=== PATIENT | male | born 1965 | race Two or more races ===

== ENCOUNTER 2023-04-19 23:03 | Inpatient (IN) | payer MEDICAID, OTHER ==
[~2023-04-19] VITALS: Ht 165.1 cm; Wt 89.4 kg
[2023-04-19 23:22] LABS: Basophils # (auto) 0.1 10 ^3/uL (0-0.2); Basophils % (auto) 1.2 % (0.0-2.0); Eosinophils # (auto) 0.4 10 ^3/uL (0-0.8); Eosinophils % (auto) 4.8 % (0.0-7.0); Hematocrit 38.1 % (41.0-53.0); Hemoglobin 12.9 g/dL (13.5-17.5); Lymphocytes # (auto) 3.6 10 ^3/uL (0.4-5.4); Lymphocytes % (auto) 44.3 % (10.0-50.0); Mean Corpuscular Hemoglobin 30.1 pg (28.0-32.0); Mean Corpuscular Hgb Conc. 33.9 g/dL (32.0-36.0); Mean Corpuscular Volume 88.7 fL (80.0-100.0); Monocytes # (auto) 0.6 10 ^3/uL (0-1.3); Monocytes % (auto) 7.9 % (0.0-12.0); Neutrophils # (auto) 3.4 10 ^3/uL (1.6-8.6); Neutrophils % (auto) 41.8 % (37.0-80.0); Nucleated Red Blood Cells % 0.1 %; Red Cell Distribution Width 14.6 % (11.8-14.3); White Blood Cell 8.2 10^3/uL (4.4-10.8)
[2023-04-19 23:36] VITALS: PULSE 93; RESP 22; O2SAT 94
[2023-04-19] MEDS ORDERED: ANGIOMAX 250 MG VIAL IV ONE (23:38)
[2023-04-19 23:39] LABS: INR 1.07 (0.9-1.15); Partial Thromboplastin Time 25.8 SEC (24.5-34.5); Prothrombin Time 11.2 sec (9.3-11.8)
[2023-04-19] MEDS ORDERED: HEPARIN SODIUM (PORCINE) 5000 UNITS/ML 1ML VIAL ONE (23:39)
[2023-04-19] MEDS ORDERED: SODIUM CHL 0.9% 50 ML ONE (23:39)
[2023-04-19] MEDS ORDERED: VERAPAMIL 2.5MG/ML INJ 2ML VIAL IV ONE (23:39)
[2023-04-19] MEDS ORDERED: fentaNYL CITRATE 100 MCG/2 ML VL ONE (23:39)
[2023-04-19] MEDS ORDERED: MIDAZOLAM HCL 2MG/2ML 2ml VIAL (1mg/ml) ONE (23:39)
[2023-04-19] MEDS ORDERED: HEPARIN IN NS 1000Units/500mL 1,500 ML ONE (23:41)
[2023-04-19] MEDS ORDERED: IOHEXOL 350 MG/ML 100ML IJ ONE (23:41)
[2023-04-19] MEDS ORDERED: LIDOCAINE 2%HCL (LOCAL ANESTH.) INJ 10ml MDV ONE (23:41)
[2023-04-19] MEDS ORDERED: LIDOCAINE 2%HCL (LOCAL ANESTH.) INJ 20ML MDV ONE (23:42)
[2023-04-19 23:44] LABS: Alanine Aminotransferase 17 U/L (7-40); Alkaline Phosphatase 79 U/L (46-116); Anion Gap 6.7 (5-15); BUN/Creatinine Ratio 11.3 (10.0-20.0); Blood Urea Nitrogen 16 mg/dL (9-23); Calcium 9.9 mg/dL (8.7-10.4); Carbon Dioxide 28.3 mmol/L (20-30); Chloride 102 mmol/L (98-107); Glucose 249 mg/dL (74-106); Magnesium 1.5 mg/dL (1.6-2.6); Potassium 3.7 mmol/L (3.5-5.1); Sodium 137 mmol/L (136-145)
[2023-04-19 23:45] LABS: Albumin 4.3 g/dL (3.2-4.8); Aspartate Aminotransferase 13 U/L (13-40); Bilirubin, Total 0.4 mg/dL (0.2-1.0); Total Protein 6.9 g/dL (5.7-8.2)
[2023-04-20] VITALS (20 sets, daily range): BP systolic 118–152; BP diastolic 83–100; PULSE 69–98; RESP 10–18; TEMP 97.1–98; O2SAT 91–99
[2023-04-20] MEDS ORDERED: CLOPIDOGREL 300 MG TAB ONE (00:05)
[2023-04-20] MEDS ORDERED: IOHEXOL 350 MG/ML 100ML IJ ONE ×2 (00:23→00:32)
[2023-04-20] MEDS ORDERED: ATROPINE SULF 1 MG/10ml SYR ONE (00:28)
[2023-04-20] MEDS ORDERED: ANGIOMAX 250 MG VIAL IV ONE (00:55)
[2023-04-20] MEDS ORDERED: SODIUM CHL 0.9% 50 ML ONE (00:56)
[2023-04-20] MEDS ORDERED: IODIXANOL 320MG/ML 100ML BTL IV ONE (00:59)
[2023-04-20] MEDS ORDERED: MORPHINE SULFATE INJ 2 MG/ml SYRG IV PRN (01:30)
[2023-04-20] MEDS ORDERED: NITROGLYCERIN 0.4 MG SL TAB SL PRN (01:30)
[2023-04-20] MEDS ORDERED: CHOLPOW45 XX (03:36)
[2023-04-20] MEDS ORDERED: LOSA25TA15 PO (03:36)
[2023-04-20] MEDS ORDERED: FAMO20TA10 PO (03:36)
[2023-04-20] MEDS ORDERED: ASPI-498 OR (03:36)
[2023-04-20] MEDS ORDERED: SEMA1INJ2 SC (03:36)
[2023-04-20] MEDS ORDERED: SIMV20TA20 PO (03:36)
[2023-04-20] MEDS ORDERED: LOSA100T58 PO (03:36)
[2023-04-20] MEDS ORDERED: ALOG1TAB2 PO (03:36)
[2023-04-20] MEDS ORDERED: GLIM4TAB42 PO (03:36)
[2023-04-20] MEDS ORDERED: ATOR40TA52 PO (03:36)
[2023-04-20] MEDS ORDERED: HYDR25TA4 PO (03:36)
[2023-04-20] MEDS ORDERED: FENO145T27 PO (03:36)
[2023-04-20] MEDS ORDERED: LORA-354 PO (03:36)
[2023-04-20] MEDS ORDERED: DEXTROSE (50%) 50ML SYRG IV PRN (04:45)
[2023-04-20 06:04] LABS: Alanine Aminotransferase 20 U/L (7-40); Alkaline Phosphatase 85 U/L (46-116); Anion Gap 9.3 (5-15); Aspartate Aminotransferase 76 U/L (13-40); BUN/Creatinine Ratio 10.6 (10.0-20.0); Blood Urea Nitrogen 13 mg/dL (9-23); Calcium 9.4 mg/dL (8.7-10.4); Carbon Dioxide 23.7 mmol/L (20-30); Chloride 102 mmol/L (98-107); Magnesium 1.5 mg/dL (1.6-2.6); Potassium 3.8 mmol/L (3.5-5.1); Sodium 135 mmol/L (136-145)
[2023-04-20 06:05] LABS: Bilirubin, Total 0.4 mg/dL (0.2-1.0); Total Protein 6.4 g/dL (5.7-8.2)
[2023-04-20 06:09] LABS: Glucose 120 mg/dL (74-106)
[2023-04-20 06:10] LABS: Basophils # (auto) 0 10 ^3/uL (0-0.2); Basophils % (auto) 0.7 % (0.0-2.0); Eosinophils # (auto) 0.3 10 ^3/uL (0-0.8); Eosinophils % (auto) 3.6 % (0.0-7.0); Hematocrit 37.3 % (41.0-53.0); Hemoglobin 12.7 g/dL (13.5-17.5); Lymphocytes # (auto) 2.4 10 ^3/uL (0.4-5.4); Lymphocytes % (auto) 33.4 % (10.0-50.0); Mean Corpuscular Hemoglobin 30.1 pg (28.0-32.0); Mean Corpuscular Hgb Conc. 34.1 g/dL (32.0-36.0); Mean Corpuscular Volume 88.4 fL (80.0-100.0); Monocytes # (auto) 0.5 10 ^3/uL (0-1.3); Monocytes % (auto) 7.3 % (0.0-12.0); Nucleated Red Blood Cells % 0.1 %; Red Blood Cells 4.22 10^6/uL (4.5-5.90); Red Cell Distribution Width 14.9 % (11.8-14.3); White Blood Cell 7.3 10^3/uL (4.4-10.8)
[2023-04-20] MEDS: ACCU-CHEK COMFORT CURVE STRIP VI SCH ×2 (06:17→11:11)
[2023-04-20] MEDS: InsuLIN REG 1unit/0.01ml Soln (100units/ml) SC SCH ×2 (06:18→11:15)
[2023-04-20] MEDS ORDERED: MAGNESIUM SULFATE 1GM/100ML 100 ML IV ONE (09:15)
[2023-04-20] MEDS ORDERED: CLOPIDOGREL BISULFATE 75 MG TAB PO SCH (10:00)
[2023-04-20] MEDS ORDERED: FAMOTIDINE (10MG/ML) 2ML VL IV SCH (10:00)
[2023-04-20] MEDS ORDERED: ASPirin 81 mg TAB PO SCH (10:00)
[2023-04-20] MEDS ORDERED: METOPROLOL SUCCINATE XL 50 MG TAB PO ONE (10:45)
[2023-04-20] MEDS ORDERED: CLOP75TA70 PO (11:31)
[2023-04-20 16:48] LABS: Triglycerides 337 mg/dL (< 150)
[2023-04-20 16:49] LABS: LDL Cholesterol 76 mg/dL (< 100)
[2023-04-20 16:50] LABS: Cholesterol 128 mg/dL (< 200); HDL Cholesterol 26 mg/dL (40-59)
[2023-04-20] MEDS ORDERED: ATORVASTATIN 20 MG TAB PO SCH ×2 (22:00)
[2023-04-20] MEDS ORDERED: InsuLIN REG 1unit/0.01ml Soln (100units/ml) SC SCH (22:00)
[2023-04-21] MEDS ORDERED: METOPROLOL SUCCINATE XL 50 MG TAB PO SCH (10:00)
== END 2023-04-20 18:04 | disposition home or self-care (01) | DRG 174 ==
LOC: EDBD 23:03 → ER 23:07 → TELE 04-20 01:20 → DOU IN ICU 04-20 01:44
PROVIDERS: ADMIT Student in an Organized Health Care Education/Training Program; ATTEND Student in an Organized Health Care Education/Training Program
PROC: 027034Z Dilation of Coronary Artery, One Artery with Drug-eluting Intraluminal Device, Percutaneous Approach (ICD-10-PCS; principal; 2023-04-20)
PROC: 4A023N7 Measurement of Cardiac Sampling and Pressure, Left Heart, Percutaneous Approach (ICD-10-PCS; 2023-04-20)
PROC: B211YZZ Fluoroscopy of Multiple Coronary Arteries using Other Contrast (ICD-10-PCS; 2023-04-20)
DX: I21.19 ST elevation (STEMI) myocardial infarction involving other coronary artery of inferior wall (principal); E11.65 Type 2 diabetes mellitus with hyperglycemia; I25.10 Atherosclerotic heart disease of native coronary artery without angina pectoris; I10 Essential (primary) hypertension; E83.42 Hypomagnesemia; E78.5 Hyperlipidemia, unspecified; E66.9 Obesity, unspecified; Z79.4 Long term (current) use of insulin; Z83.3 Family history of diabetes mellitus; Z90.49 Acquired absence of other specified parts of digestive tract; Z68.32 Body mass index [BMI] 32.0-32.9, adult
CPT/HCPCS: 36415; 80053; 80061; 82962; 83036; 83605; 83735; 83880; 84443; 84484; 85025; 85610; 85730; 86850; 86900; 86901; 87081; 92941; 93306; 93458; 99152; C1725; G0378; J1815; J2001; J2250; J3490; Q9967

== ENCOUNTER 2025-05-11 05:55 | Emergency (ER) | payer MEDICAID ==
[~2025-05-11] VITALS: Ht 167.6 cm; Wt 77.6 kg
[~2025-05-11 05:55] MED LIST: ALOG1TAB2 PO; ASPI-498 OR; ATOR40TA52 PO; CHOLPOW45 XX; CLOP75TA70 PO; FAMO20TA10 PO; FENO145T27 PO; GLIM4TAB42 PO; HYDR25TA4 PO; LORA-354 PO; LOSA-533 PO; LOSA-535 PO; SEMA1INJ2 SC; SIMV20TA20 PO
[2025-05-11 05:56] VITALS: BP 124/93; PULSE 80; RESP 18; TEMP 97.7; O2SAT 97
--- NOTE | 2025-05-11 06:43 | ED.PDOC ---
GI ASSESSMENT HPI Comments 59-year-old male who presents to the ED with a chief complaint of abdominal pain onset 3 days. Patient states he began experiencing RLQ pain 3 days ago, radiates as a cramping sensation to LLQ. Patient is also experiencing nausea. PMHx HTN, DM. Denies vomiting, diarrhea, constipation, fever, chills, chest pain, shortness of breath, headache, dizziness, hematemesis, melena, blood in stool, dysuria, hematuria. No other symptoms or modifying factors present at this time. Chief Complaint: Abdominal Pain Time Seen by MD: 06:35 Reviewed Notes: Medications, Allergies Allergies: Coded Allergies: NO KNOWN ALLERGIES (Unverified , 04/19/23) Home Meds Active Scripts Clopidogrel Bisulfate (CLOPIDOGREL) 75 Mg Tab, 75 MG PO DAILY for 30 Days, #30 TAB 3 Refills Prov:NATE ADAME MD 04/20/23 Reported Medications Semaglutide (Ozempic 8 mg/3Ml) 1 Inj Inj, 1 INJ SC, INJ 04/20/23 Losartan Potassium (Losartan Potassium) 100 Mg Tab, 1 TAB PO DAILY, #30 TAB 5 Refills 04/20/23 Losartan Potassium (Losartan Potassium) 25 Mg Tab, 1 TAB PO DAILY, #90 TAB 1 Refill 04/20/23 Hydrochlorothiazide (Hydrochlorothiazide) 25 Mg Tab, 1 TAB PO DAILY, #30 TAB 5 Refills 04/20/23 Famotidine (PEPCID TABLET) 20 Mg Tb, 1 TAB PO HS, #60 TAB 5 Refills 04/20/23 Alogliptin Benzoate (Alogliptin) 25 Mg Tab, 25 MG PO DAILY, TAB 04/20/23 Cholecalciferol (VITAMIN D3) Pow, 1 XX, POW 04/20/23 Fenofibrate (FENOFIBRATE) 145 Mg Tab, 1 TAB PO DAILY, #30 TAB 5 Refills 04/20/23 Glimepiride (Glimepiride) 4 Mg Tab, 1 TAB PO BID, #180 TAB 1 Refill 04/20/23 Atorvastatin Calcium (ATORVASTATIN CALCIUM) 40 Mg Tab, 1 TAB PO DAILY, #30 TAB 5 Refills 04/20/23 Simvastatin (Simvastatin) 20 Mg Tab, 1 TAB PO QPM, #30 TAB 5 Refills 04/20/23 Aspirin (ASPIRIN 81) 81 Mg Tab, 81 MG OR DAILY, TAB 04/20/23 Loratadine (Sb Loratadine Allergy Rel) 10 Mg Tab, 1 TAB PO DAILY, #30 TAB 5 Refills 04/20/23 Information Source: Patient Mode of Arrival: Ambulatory Timing: Days Duration: Since onset Prehospital treatment: None Quality: Cramping, Sharp Vomitus: None Severity: Moderate Recent: None Recent Hx of: None Pain Location: RLQ Modifying Factors: Nothing Associated sign and symptoms: Nausea, Abdominal Pain Past Medical History PAST MEDICAL HISTORY: DM, HTN Surgical History: Cholecystectomy, Hysterectomy, PTCA Surgical History (Other): back surgery Family History Family History: Unknown Social History Smoker: Non-Smoker Alcohol: Denies ETOH Use Drugs: Denies Drug Use Lives In: Home Constitutional: denies: chills, diaphoresis, fatigue, fever, malaise, sweats, weakness, others EENTM: denies: blurred vision, double vision, ear bleeding, ear discharge, ear drainage, ear pain, ear ringing, eye pain, eye redness, hearing loss, mouth pain, mouth swelling, nasal discharge, nose bleeding, nose congestion, nose pain, photophobia, tearing, throat pain, throat swelling, voice changes, others Respiratory: denies: cough, hemoptysis, orthopnea, SOB at rest, shortness of breath, SOB with excertion, stridor, wheezing, others Cardiovascular: denies: chest pain, dizzy spells, diaphoresis, Dyspnea on exertion, edema, irregular heart beat, left arm pain, lightheadedness, palpitations, PND, syncope, others Gastrointestinal: reports: abdominal pain, nausea; denies: abdomen distended, blood streaked bowels, constipated, diarrhea, dysphagia, difficulty swallowing, hematemesis, melena, poor appetite, poor fluid intake, rectal bleeding, rectal pain, vomiting, others Genitourinary: denies: burning, dysuria, flank pain, frequency, hematuria, inc ontinence, penile discharge, penile sore, pain, testicle pain, testicle swelling, urgency, others Neurological: denies: dizziness, fainting, headache, left sided numbness, left sided weakness, numbness, paresthesia, pre-existing deficit, right sided numbness, right sided weakness, seizure, speech problems, tingling, tremors, weakness, others Musculoskeletal: denies: back pain, gout, joint pain, joint swelling, muscle pain, muscle stiffness, neck pain, others Integumetry: denies: bruises, change in color, change in hair/nails, dryness, laceration, lesions, lumps, rash, wounds, others Allergic/Immunocompromised: denies: Difficulty Healing, Frequent Infections, Hives, Itching, others Hematologic/Lymphatic: denies: anemia, blood clots, easy bleeding, easy bruising, swollen glands, others Endocrine: denies: excessive hunger, excessive sweating, excessive thirst, excessive urination, flushing, intolerance to cold, intolerance to heat, unexplained weight gain, unexplained weight loss, others Psychiatric: denies: anxiety, bipolar disorder, depression, hopeless, panic disorder, schizophrenia, sleepless, suicidal, others All Other Systems: Reviewed and Negative Physical Exam General Appearance: Moderate Distress, Normal HEENT: Normal ENT Inspection, Pharynx Normal, TMs Normal Neck: Full Range of Motion, Non-Tender, Normal, Normal Inspection Respiratory: Chest Non-Tender, Lungs Clear, No Accessory Muscle Use, No Respiratory Distress, Normal Breath Sounds Cardiovascular: No Edema, No JVD, No Murmur, No Gallop, Normal Peripheral Pulses, Regular Rate/Rhythm Breast Exam: Deferred Gastrointestinal: Diffuse, No Organomegaly, No Pulsatile Mass, Normal Bowel Sounds, Soft Genitalia: Deferred Pelvic: Deferred Rectal: Deferred Extremities: No calf tenderness, Normal capillary refill, Normal inspection, Normal range of motion, Non-tender, No pedal edema Musculoskeletal : Apperance: Normal Neurologic: Alert, pattern wheel maker II-XII nml as Tested, No Motor Deficits, Normal Affect, Normal Mood, No Sensory Deficits Cerebellar Function: Normal Reflexes: Normal Skin: Dry, Normal Color, Warm Peripheral Pulses: 3+ Radial (R), 3+ Radial (L) Lymphatic: No Adenopathy Was a procedure done? Was a procedure done?: No GI differential Dx Differential Diagnosis: Constipation, Diverticular disease, Esophagitis, Gastritis/PUD, Gastroenteritis X-Ray, Labs, Meds, VS Vital Signs Date Time Temp Pulse Resp B/P (MAP) Pulse Ox O2 Delivery O2 Flow Rate FiO2 05/11/25 05:56 97.7 80 18 124/93 97 97.7 Lab Test 05/11/25 06:43 Range/Units White Blood Count 5.4 4.4-10.8 10^3/uL Red Blood Count 4.61 4.5-5.90 10^6/uL Hemoglobin 14.4 13.5-17.5 g/dL Hematocrit 41.1 41.0-53.0 % Mean Corpuscular Volume 89.2 80.0-100.0 fL Mean Corpuscular Hemoglobin 31.3 28.0-32.0 pg Mean Corpuscular Hemoglobin Concent 35.1 32.0-36.0 g/dL Red Cell Distribution Width 14.8 H 11.8-14.3 % Platelet Count 236 140-450 10^3/uL Mean Platelet Volume 8.3 6.9-10.8 fL Neutrophils (%) (Auto) 44.5 37.0-80.0 % Lymphocytes (%) (Auto) 41.7 10.0-50.0 % Monocytes (%) (Auto) 8.1 0.0-12.0 % Eosinophils (%) (Auto) 4.3 0.0-7.0 % Basophils (%) (Auto) 1.4 0.0-2.0 % Neutrophils # (Auto) 2.4 1.6-8.6 10 ^3/uL Lymphocytes # (Auto) 2.3 0.4-5.4 10 ^3/uL Monocytes # (Auto) 0.4 0-1.3 10 ^3/uL Eosinophils # (Auto) 0.2 0-0.8 10 ^3/uL Basophils # (Auto) 0.1 0-0.2 10 ^3/uL Nucleated Red Blood Cells 0.0 % Sodium Level 145 136-145 mmol/L Potassium Level 4.5 3.5-5.1 mmol/L Chloride Level 107 98-107 mmol/L Carbon Dioxide Level 28 20-31 mmol/L Anion Gap 10 5-15 Blood Urea Nitrogen 16 9-23 mg/dL Creatinine 1.50 H 0.700-1.30 mg/dL Glomerular Filtration Rate Calc 53 >90 mL/min BUN/Creatinine Ratio 10.7 10.0-20.0 Serum Glucose 101 74-106 mg/dL Calcium Level 9.4 8.7-10.4 mg/dL Patient alert. Complaining of abdominal pain. Vitals stable. Answering questions. He is tender on palpation. Establish intravenous access. Was given fluids. History of coronary artery disease. Explained to the patient. Continue monitoring. [address] [address] Ph: [phone] DIAGNOSTIC IMAGING Diagnostic Imaging Report : [id number] Signed PATIENT: MADINA CHAMPAGNE ACCT: [id number] UNIT: [id number] : 1965 LOC: ER ROOM / BED: / AGE / SEX: 59 / M ADM STATUS: REG ER SERVICE [id number] ORDERING PHYSICIAN: SUZANNE RICK MD PROCEDURE(s): ABPL - CT AB PEL WO CON-NO ORAL OR IV REASON: appy ORDER NUMBER(s): [id number], ACCESSION NUMBER(s): [id number] Exam: CT CT AB PEL WO CON-NO ORAL OR IV History: appy Comparison Study: None Technique: Multidetector spiral CT of the abdomen and pelvis was performed from lung bases to pubic symphysis. Imaging was performed without intravenous contrast. Coronal and sagittal multiplanar reformats were obtained from the axial data set by the technologist. Radiation Dose : 1. Abdomen/Pelvis: CTDIvol 8.23 mGy, DLP 495.5 mGy*cm. Findings: Evaluation of vasculature and solid organs is limited due to lack of intravenous contrast use. Lung Bases: Lung bases are clear. Heart normal in size. Coronary artery calcific ations. Liver: The liver is normal in size. No focal lesions. Gallbladder and Biliary Tree: The gallbladder is surgically absent. No intrahepatic or extrahepatic biliary ductal dilatation. Spleen: Unremarkable Pancreas: The pancreas is grossly unremarkable. Adrenal Glands: Unremarkable Kidneys: Kidneys are unremarkable without calculi or hydronephrosis. GI tract: The stomach is grossly normal in appearance. No evidence of small bowel wall thickening or abnormal dilatation to suggest bowel obstruction. Surgical anastomosis and distal small bowel loops. Fluid-filled small bowel loops. There is colonic diverticulosis without acute diverticulitis. Normal appendix. Peritoneum/mesentery/retroperitoneum. No evidence of free intraperitoneal air. No ascites. No evidence of suspicious lymphadenopathy. Abdominal Wall: There is a left inguinal hernia containing fat, fluid and foci of gas. No bowel within the hernia. There is a fat containing right inguinal hernia.. Vasculature: The visualized abdominal aorta is normal in size and caliber. Evaluation of abdominal and pelvic vessels is limited due to lack of intravenous contrast. Urinary Bladder: Grossly unremarkable for degree of distention. Pelvic Organs: Unremarkable Musculoskeletal: No aggressive focal bony lesions, acute fractures or dislocation. Postsurgical changes from posterior instrumented fusion at L4-S1. IMPRESSION: 1. Left inguinal hernia containing fat, fluid and foci of gas which could represent infected inguinal hernia in the absence of any recent surgery or manipulation. Please correlate with clinical findings. No bowel within the hernia. 2. Fluid-filled small bowel loops, nonspecific. Enteritis not excluded. 3. Sigmoid diverticulosis without acute diverticulitis. 4. Normal appendix. 5. Cholecystectomy. ATED BY: NYA MCCLAIN MD DICTATED DATE/TIME: 05/11/25738 SIGNED BY: NYA MCCLAIN MD SIGNED DATE/TIME: 05/11/25738 CC: Time of 1ST Reevaluation: 07:05 Reevaluation 1ST: Unchanged Patient Education/Counseling: Diagnosis, Treatment, Prognosis Family Education/Counseling: No Family Present SEPSIS Sepsis Screen Date sepsis recognized/suspect: May 11, 2025 Time Sepsis recognized/suspect: 557 Recent Procedure: No On Antibiotic Therapy: No Respiratory Rate >20: No Heart Rate >90: No Temp<36 C (96.8 F) or >38.3 C: No SBP <90 or MAP <65 mmHG: No New Acute Mental Status Change: No Is the patient on CPAP, BIPAP,: No Physician Orders Urinalysis (05/11/25 06:29) Ct Ab Pel Wo Con-No Oral Or Iv (05/11/25 06:29) Vital Signs Date Time Temp Pulse Resp B/P (MAP) Pulse Ox O2 Delivery O2 Flow Rate FiO2 05/11/25 05:56 97.7 80 18 124/93 97 97.7 Laboratory Tests Test 05/11/25 06:43 White Blood Count 5.4 10^3/uL (4.4-10.8) Departure 1 Departure Time of Disposition: 06:44 Impression: Primary Impression: Acute abdominal pain Disposition: ADMITTED INPATIENT Admit to: Med Surg Condition: Guarded Critical Care Note Critical Care Time?: No Stability Stability form required: No Heart Score Heart Score: Heart Score Response (Comments) Value History N/A 0 EKG N/A 0 Age N/A 0 Risk Factors N/A 0 Troponin N/A 0 Total 0 I personally scribed for SUZANNE RICK MD ([email or web address]) on 05/11/25 at 06:43. Electronically submitted by Greer Rojas ([email or web address]). I personally scribed for SUZANNE RICK MD ([email or web address]) on 05/11/25 at 07:53. Electronically submitted by Greer Rojas ([email or web address]). SUZANNE RICK MD May 11, 2025 06:43
[2025-05-11 07:12] LABS: Potassium 4.5 mmol/L (3.5-5.1); Sodium 145 mmol/L (136-145)
[2025-05-11 07:13] LABS: Anion Gap 10 (5-15); Carbon Dioxide 28 mmol/L (20-31)
[2025-05-11 07:14] LABS: Calcium 9.4 mg/dL (8.7-10.4)
[2025-05-11 07:19] LABS: BUN/Creatinine Ratio 10.7 (10.0-20.0); Blood Urea Nitrogen 16 mg/dL (9-23); Glucose 101 mg/dL (74-106)
[2025-05-11 07:21] LABS: Chloride 107 mmol/L (98-107); Hematocrit 41.1 % (41.0-53.0); Hemoglobin 14.4 g/dL (13.5-17.5); Mean Corpuscular Hemoglobin 31.3 pg (28.0-32.0); Mean Corpuscular Volume 89.2 fL (80.0-100.0); Nucleated Red Blood Cells % 0.0 %
--- NOTE | 2025-05-11 07:42 | DVH ---
Exam: CT CT AB PEL WO CON-NO ORAL OR IV History: appy Comparison Study: None Technique: Multidetector spiral CT of the abdomen and pelvis was performed from lung bases to pubic s ymphysis. Imaging was performed without intravenous contrast. Coronal and sagittal multiplanar reform ats were obtained from the axial data set by the technologist. Radiation Dose : 1. Abdomen/Pelvis: CTDIvol 8.23 mGy, DLP 495.5 mGy*cm. Findings: Evaluation of vasculature and solid organs is limited due to lack of intravenous contrast use. Lung Bases: Lung bases are clear. Heart normal in size. Coronary artery calcifications. Liver: The liver is normal in size. No focal lesions. Gallbladder and Biliary Tree: The gallbladder is surgically absent. No intrahepatic or extrahepatic biliary ductal dilatation. Spleen: Unremarkable Pancreas: The pancreas is grossly unremarkable. Adrenal Glands: Unremarkable Kidneys: Kidneys are unremarkable without calculi or hydronephrosis. GI tract: The stomach is grossly normal in appearance. No evidence of small bowel wall thickening or abnormal dilatation to suggest bowel obstruction. Surgical anastomosis and distal small bowel loops. Fluid-filled small bowel loops. There is colonic diverticulosis without acute diverticulitis. Normal appendix. Peritoneum/mesentery/retroperitoneum. No evidence of free intraperitoneal air. No ascites. No evidenc e of suspicious lymphadenopathy. Abdominal Wall: There is a left inguinal hernia containing fat, fluid and foci of gas. No bowel withi n the hernia. There is a fat containing right inguinal hernia.. Vasculature: The visualized abdominal aorta is normal in size and caliber. Evaluation of abdominal a nd pelvic vessels is limited due to lack of intravenous contrast. Urinary Bladder: Grossly unremarkable for degree of distention. Pelvic Organs: Unremarkable Musculoskeletal: No aggressive focal bony lesions, acute fractures or dislocation. Postsurgical dawson es from posterior instrumented fusion at L4-S1. IMPRESSION: 1. Left inguinal hernia containing fat, fluid and foci of gas which could represent infected inguinal hernia in the absence of any recent surgery or manipulation. Please correlate with clinical findings . No bowel within the hernia. 2. Fluid-filled small bowel loops, nonspecific. Enteritis not excluded. 3. Sigmoid diverticulosis without acute diverticulitis. 4. Normal appendix. 5. Cholecystectomy.
== END 2025-05-11 12:09 | disposition left against medical advice (07) ==
LOC: ER 05:59
DX: R10.31 Right lower quadrant pain (principal); E11.9 Type 2 diabetes mellitus without complications; I10 Essential (primary) hypertension; Z90.49 Acquired absence of other specified parts of digestive tract; Z79.899 Other long term (current) drug therapy
CPT/HCPCS: 36415; 74176; 80048; 85025